=== PATIENT | male | born 1985 | race Caucasian/White ===

== ENCOUNTER 2020-03-02 19:30 | Emergency (ER) | payer OTHER ==
[~2020-03-02] VITALS: Ht 177.8 cm; Wt 136.1 kg
[~2020-03-02 19:30] MED LIST: ADVIL100 M2 PO; CLARITIN10 MG PO; DELTASONE20 MG PO; FLONASE 0.05%50 MCG NASAL; PROAIR HFA8.5 GM INH; PROMETHAZINE/C118 ML PO; SLEEP SOFTGEL1 EACH PO
[2020-03-02] MEDS ORDERED: NORCO 5-325 TA1 EAC2 PO (21:15)
[2020-03-02] MEDS ORDERED: FLEXERIL PO (21:15)
[2020-03-02] MEDS ORDERED: MEDROLDOSEPACK PO (21:15)
[2020-03-02 21:36] VITALS: BP 147/86
== END 2020-03-02 21:36 | disposition home or self-care (01) ==
LOC: M.ERS 19:30
DX: M54.5 Low back pain (principal); J45.909 Unspecified asthma, uncomplicated; F17.210 Nicotine dependence, cigarettes, uncomplicated